=== PATIENT | female | born 1935 | race Caucasian/White ===

== ENCOUNTER 2016-10-19 21:16 | Emergency (ER) | payer MEDICARE, BC ==
[~2016-10-19] VITALS: Ht 162.6 cm; Wt 58.0 kg
[~2016-10-19 21:16] MED LIST: ALEN70; CALCIUM PLUS D; GLUCOSAMINE; TAB-TAB; vitamin c
[2016-10-19 21:24] VITALS: BP 135/100; PULSE 123; RESP 18; TEMP 99.4; O2SAT 97
[2016-10-19 22:10] VITALS: BP 137/88; PULSE 98; RESP 16; O2SAT 99
[2016-10-19] MEDS ORDERED: GLUC1CAP14 PO (22:19)
[2016-10-19] MEDS ORDERED: GABA100C4 PO (22:19)
[2016-10-19] MEDS ORDERED: CYAN1000P IM (22:19)
[2016-10-19] MEDS ORDERED: DENO60P SQ (22:19)
--- NOTE | 2016-10-19 22:29 | PD ---
HPI Chief Complaint: Musculoskeletal Complaint Time Seen by Provider: 22:19 Travel History International Travel<30 days: No Contact w/Intl Traveler<30days: No Traveled to known affect area: No History of Present Illness HPI The patient is an 80-year-old female that fell yesterday, fell backwards, and now has bilateral groin pain and states she cannot walk even with her walker. She waited one day because she get better. 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 She complains of some slight left hip pain but her main complaint is bilateral groin pain. PFSH Past Medical History Arthritis: Yes Blood Disorders: No Cancer: Yes (BREAST) Cardiovascular Problems: No Diabetes: No Endocrine: No Gastrointestinal Disorders: No Genitourinary: No Neurologic: No Psychiatric: No Respiratory: No Tetanus Vaccination: > 5 Years ?: Not Past Surgical History Appendectomy: Yes (1949) Tonsillectomy: Yes (1940) Other Surgery: Yes (BILATERAL MASTECTOMY) Social History Alcohol Use: No Tobacco Use: No Substance Use: No Allergies-Medications (Allergen,Severity, Reaction): Coded Allergies: No Known Allergies (Verified , 07/20/07) Reported Meds & Prescriptions Reported Meds & Active Scripts Active Reported Prolia Inj (Denosumab) 60 Mg/Ml Inj 60 Mg SQ Q180D Glucosamine-Chondroitin 500-400 Mg Cap 1 Cap PO DAILY Cyanocobalamin Inj (Cyanocobalamin) 1,000 Mcg/Ml Inj 1,000 Mcg IM Q30D Gabapentin 100 Mg Cap 100 Mg PO TID [Glucosamine] [Calcium Plus D] [vitamin c] Review of Systems Except as stated in HPI: all other systems reviewed are Neg Physical Exam Narrative GENERAL: Well-nourished, well-developed patient in slight apparent distress with her bilateral groin pain. Her vital signs show heart rate of 123 but otherwise normal, repeat shows heart rate of 98. SKIN: Warm and dry. No contusions or skin rash are noted. HEAD: Normocephalic. EYES: No scleral icterus. No injection or drainage. NECK: Supple, trachea midline. No JVD or lymphadenopathy. CARDIOVASCULAR: Regular rate and rhythm without murmurs, gallops, or rubs. RESPIRATORY: Breath sounds equal bilaterally. No accessory muscle use. GASTROINTESTINAL: Abdomen soft, non-tender, nondistended. MUSCULOSKELETAL: No cyanosis, or edema. There is tenderness with her bilateral anterior groin over the anterior pubic rami. There is minimal tenderness over the left hip. There is no foreshortening of either leg and good capillary refill and pinprick is present distally on the feet. BACK: Nontender without obvious deformity. No CVA tenderness. Data Data Last Documented VS Vital Signs Date Time Temp Pulse Resp B/P Pulse Ox O2 Delivery O2 Flow Rate FiO2 10/19/16 22:13 92 10/19/16 22:10 16 137/88 99 10/19/16 21:24 99.4 Orders Hip, Uni(Ap&Lat) W Ap Pelvis (10/19/16 22:37) MDM Medical Decision Making Medical Screen Exam Complete: Yes Emergency Medical Condition: Yes Medical Record Reviewed: Yes Interpretation(s) The hip with AP pelvis shows chronic change but no acute fracture/dislocation or abnormality is noted. There does appear to be a healed fracture deformity on the inferior and superior pubic rami on the left, the patient remembers fracturing her pelvis there before. Differential Diagnosis Pubic rami fracture, hip fracture, contusion hip/pelvis Narrative Course The patient appears to have a contusion of the hip/pelvis area. She states she has done well with oxycodone in the past and will be prescribed Percocet. Diagnosis Primary Impression: Contusion of left hip Med/Other Pt SpecificInfo: Prescription(s) given Scripts Oxycodone-Acetaminophen (Percocet)5-325 mg Tab1 Tab PO Q4H PRN (PAIN) #30 TAB Ref 0 Prov:Jair Vera MD 10/19/16 Disposition: 01 DISCHARGE HOME Condition: Stable Jair Vera MD Oct 19, 2016 22:29
--- NOTE | 2016-10-19 23:02 | RADHPO ---
EXAM DATE/TIME: 10/19/2016 22:45 [facility] COMPARISON: No previous studies available for comparison. INDICATIONS : Left hip pain post fall last night. MEDICAL HISTORY : None. SURGICAL HISTORY : Left hip replacement. ENCOUNTER: Initial ACUITY: 1 day PAIN SCORE: 3/10 LOCATION: Left hip. FINDINGS: Examination of the left hip was performed with AP Pelvis. There is a total hip prosthesis seen on th e left side. There appears be healed fracture deformity is at the inferior and superior pubic rami on the left. An acute fracture deformity is not seen. There is degenerative change in the lumbar spine. CONCLUSION: Chronic change as described above. An acute abnormality is not seen. Rick Malone MD on October 19, 2016 at 22:59 Board Certified Radiologist. This report was verified electronically.
[2016-10-19] MEDS ORDERED: PERC5TAB12 PO (23:55)
[2016-10-20] MEDS ORDERED: oxyCODONE/ACETAMINOPHEN 7.5 MG/325 MG TAB PO ONE
[2016-10-20 00:38] VITALS: BP 154/72
== END 2016-10-20 00:53 | disposition home or self-care (01) ==
LOC: PHED 21:16
DX: S70.02XA Contusion of left hip, initial encounter (principal); M19.90 Unspecified osteoarthritis, unspecified site; Z96.642 Presence of left artificial hip joint; W19.XXXA Unspecified fall, initial encounter; Y93.9 Activity, unspecified; Y92.9 Unspecified place or not applicable; Y99.9 Unspecified external cause status
CPT/HCPCS: 73502; 99283

== ENCOUNTER 2016-10-29 18:28 | Observation (INO) | payer MEDICARE, BC ==
[~2016-10-29] VITALS: Ht 162.6 cm; Wt 58.0 kg
[~2016-10-29 18:28] MED LIST changes: -ALEN70; +CYAN1000P IM; +DENO60P SQ; +GABA100C4 PO; +GLUC1CAP14 PO; +PERC5TAB12 PO; -TAB-TAB
[2016-10-29 18:32] VITALS: BP 157/87; PULSE 123; RESP 20; TEMP 98.2; O2SAT 97
--- NOTE | 2016-10-29 20:04 | PD ---
HPI Chief Complaint: Pain: Acute or Chronic Time Seen by Provider: 19:19 Travel History International Travel<30 days: No Contact w/Intl Traveler<30days: No Traveled to known affect area: No History of Present Illness HPI The patient is a 89-year-old female that fell 10 days ago and hurt her neck and upper back. She was seen in this emergency department and prescribed Percocet. The patient had imaging of the pelvis and hip but not the neck or head. She complains of right head pain and neck pain and has difficulty moving her neck. She had [facility] bring her in today because of the pain. She denies any numbness or weakness radiating down her arms or legs. PFSH Past Medical History Arthritis: Yes Blood Disorders: No Cancer: Yes (BREAST) Cardiovascular Problems: No Diabetes: No Diminished Hearing: No Endocrine: No Gastrointestinal Disorders: No Genitourinary: No Neurologic: No Psychiatric: No Respiratory: No Immunizations Current: Yes Tetanus Vaccination: > 5 Years Influenza Vaccination: Yes ?: Not Past Surgical History Appendectomy: Yes (1949) Tonsillectomy: Yes (1940) Other Surgery: Yes (BILATERAL MASTECTOMY) Social History Alcohol Use: No Tobacco Use: No Substance Use: No Allergies-Medications (Allergen,Severity, Reaction): Coded Allergies: No Known Allergies (Verified , 10/29/16) Reported Meds & Prescriptions Reported Meds & Active Scripts Active Percocet (Oxycodone-Acetaminophen) 5-325 mg Tab 1 Tab PO Q4H PRN Reported Prolia Inj (Denosumab) 60 Mg/Ml Inj 60 Mg SQ Q180D Glucosamine-Chondroitin 500-400 Mg Cap 1 Cap PO DAILY Cyanocobalamin Inj (Cyanocobalamin) 1,000 Mcg/Ml Inj 1,000 Mcg IM Q14 DAYS Gabapentin 100 Mg Cap 100 Mg PO TID Review of Systems Except as stated in HPI: all other systems reviewed are Neg Physical Exam Narrative GENERAL: The patient is alert, oriented 3 in moderate apparent distress with her neck pain. Blood pressure 157/87 and heart rate of 123 but otherwise normal. SKIN: Warm and dry. HEAD: Atraumatic. Normocephalic. EYES: Pupils equal and round. No scleral icterus. No injection or drainage. ENT: No nasal bleeding or discharge. Mucous membranes pink and moist. NECK: Trachea midline. No JVD. There is tenderness on the musculature of the neck on the right. There is also slight posterior spinous process tenderness without deformity. CARDIOVASCULAR: Regular rate and rhythm. No murmur appreciated. RESPIRATORY: No accessory muscle use. Clear to auscultation. Breath sounds equal bilaterally. GASTROINTESTINAL: Abdomen soft, non-tender, nondistended. Hepatic and splenic margins not palpable. MUSCULOSKELETAL: No obvious deformities. No clubbing. No cyanosis. No edema. NEUROLOGICAL: Awake and alert. No obvious cranial nerve deficits. Motor grossly within normal limits. Normal speech. PSYCHIATRIC: Appropriate mood and affect; insight and judgment normal. Data Data Last Documented VS Vital Signs Date Time Temp Pulse Resp B/P Pulse Ox O2 Delivery O2 Flow Rate FiO2 10/29/16 22:17 122 10/29/16 21:02 17 142/88 95 Room Air 10/29/16 18:[address] Brain W/O Iv Contrast(Rout) (10/29/16 20:01) Ct Cerv Spine W/O Contrast (10/29/16 20:01) Oxycodone-Acetamin 7.5-325 Mg (Percocet (10/29/16 23:00) B-Type Natriuretic Peptide (10/29/16 23:21) Ckmb (Isoenzyme) Profile (10/29/16 23:21) Troponin I (10/29/16 23:21) Place In Observation (10/29/16 ) Vital Signs (Adult) Q4H (10/29/16 23:36) Neuro Checks Q4H (10/29/16 23:36) Activity Oob With Assistance (10/29/16 23:36) Diet Heart Healthy (10/30/16 Breakfast) Sodium Chloride 0.9% Flush (Ns Flush) (10/29/16 23:45) Sodium Chloride 0.9% Flush (Ns Flush) (10/30/16 09:00) Scd Bilateral/Knee High SMILEY.BID (10/29/16 23:36) Naloxone Inj (Narcan Inj) (10/29/16 23:45) Mri C Spine W/O Contrast (10/29/16 ) Morphine Inj (Morphine Inj) (10/29/16 23:45) MDM Medical Decision Making Medical Screen Exam Complete: Yes Emergency Medical Condition: Yes Medical Record Reviewed: Yes Interpretation(s) The CT of the brain shows no acute disease. The CT of the cervical spine shows prominent degenerative change throughout the cervical spine but no acute bony abnormality. 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 At C 56 she has at least a mild impression on the anterior aspect of the thecal sac and narrowing of the right neural foramina. Fortunately, she does not have any numbness, weakness or radiation of pain down her upper extremities. She says she cannot move any without pain. She called the ambulance because she could not move. It is possible that she may benefit from neurosurgery her pain management with this. An MRI may be necessary to define some of these degenerative problems in her neck. Diagnosis Primary Impression: Cervical neck pain with evidence of disc disease Additional Impression: Intractable pain Admitting Information Admitting Physician Requests: Jair Joshi MD Oct 29, 2016 20:04
[2016-10-29 21:02] VITALS: BP 142/88; PULSE 122; RESP 17; O2SAT 95
--- NOTE | 2016-10-29 22:05 | RADHPO ---
EXAM DATE/TIME: 10/29/2016 21:20 [facility] COMPARISON: No previous studies available for comparison. INDICATIONS : Fell 10 days ago, now with right-sided head and neck pain. RADIATION DOSE: 71.58 CTDIvol (mGy) MEDICAL HISTORY : Carcinoma, breast. SURGICAL HISTORY : Mastectomy, bilateral. Appendectomy.Tonsillectomy. ENCOUNTER: Initial ACUITY: 1 day PAIN SCALE: 8/10 LOCATION: Right neck TECHNIQUE: Multiple contiguous axial images were obtained of the head. Using automated exposure control and adj ustment of the mA and/or kV according to patient size, radiation dose was kept as low as reasonably a chievable to obtain optimal diagnostic quality images. FINDINGS: CEREBRUM: The ventricles are normal for age. No evidence of midline shift, mass lesion, hemorrhage or acute in farction. No extra-axial fluid collections are seen. POSTERIOR FOSSA: The cerebellum and brainstem are intact. The 4th ventricle is midline. The cerebellopontine angle i s unremarkable. EXTRACRANIAL: The visualized portion of the orbits is intact. SKULL: The calvaria is intact. No evidence of skull fracture. CONCLUSION: No acute disease. Rick Malone MD on October 29, 2016 at 22:03 Board Certified Radiologist. This report was verified electronically.
--- NOTE | 2016-10-29 22:32 | RADHPO ---
EXAM DATE/TIME: 10/29/2016 21:20 [facility] COMPARISON: No previous studies available for comparison. INDICATIONS: Fell 10 days ago, now with right-sided head and neck pain. RADIATION DOSE: 26.28 CTDIvol (mGy) MEDICAL HISTORY: Carcinoma, breast. SURGICAL HISTORY: Mastectomy, bilateral. Tonsillectomy. Appendectomy. ENCOUNTER: Initial ACUITY: 1 day PAIN SCALE: 8/10 LOCATION: Right neck TECHNIQUE: Volumetric scanning of the cervical spine was performed. Multiplanar reconstructions in the sagittal, coronal and oblique axial planes were performed. Using automated exposure control and adjustment o f the mA and/or kV according to patient size, radiation dose was kept as low as reasonably achievable to obtain optimal diagnostic quality images. FINDINGS: The craniovertebral junction is intact. The C1 ring is intact. The C1-C2 articulation is aligned. There is hypertrophic change at the C1-C2 articulation. The dens is intact. There is some loss of h eight at the C6 vertebral body. An acute fracture is not seen. This appears chronic. There does ap pear to be end plate sclerosis at the C5, C6 and C7 levels. There is anterior subluxation in the ord er of 5 mm of C4 on C5 and in the order of 5 mm of C7 on T1. C2-C3: The disc margin appears grossly intact. Significant spinal stenosis is not appreciated. There is bi lateral facet hypertrophy being worse on the left. The neural foramina are grossly patent. C3-C4: Disc space is grossly intact. There is no spinal stenosis. The neural foramina are normal. There i s bilateral facet hypertrophy being worse on the left. C4-C5: Again noted is the anterior subluxation of C4 on C5. There is fusion at the facet joints. The neura l foramina are grossly patent. C5-C6: Disc space is narrowed. There is posterior osteophytic ridging being asymmetric and worse on the rig ht causing at least a mild impression on the anterior aspect of the thecal sac. There is uncovertebr al hypertrophy being worse on the right. There is narrowing of the right neural foramina. The left neural foramina appears grossly intact. C6-C7: Disc space is narrowed. There is mild posterior osteophytic ridging. There is uncovertebral hypertr ophy. The neural foramina are grossly intact. There is facet hypertrophy. C7-T1: again noted is the anterior subluxation of C7 on T1. This is thought to be secondary to severe facet hypertrophy. The neural foramina are grossly normal. CONCLUSION: Very prominent degenerative change throughout as described above. An acute bony abnormality is not c learly identified. Rick Malone MD on October 29, 2016 at 22:03 Board Certified Radiologist. This report was verified electronically.
[2016-10-29] MEDS ORDERED: oxyCODONE/ACETAMINOPHEN 7.5 MG/325 MG TAB PO ONE (23:00)
[2016-10-29] MEDS ORDERED: NALOXONE HCL 0.4 MG/ML AMP IV PRN (23:45)
[2016-10-29] MEDS ORDERED: SODIUM CHLORIDE 0.9% FLUSH 5 ML FLUSH FLUSH PRN (23:45)
[2016-10-29] MEDS ORDERED: MORPHINE SULFATE 4 MG/ML INJ IV PUSH PRN (23:45)
[2016-10-29 23:46] VITALS: BP 153/94; PULSE 132; RESP 16; TEMP 99.4; O2SAT 98
[2016-10-30 00:19] LABS: BICARBONATE 23.4 MEQ/L (21.0-32.0); BLOOD UREA NITROGEN 14 MG/DL (7-18)
[2016-10-30 00:22] LABS: ALT (GPT) 19 U/L (10-53); AST (GOT) 18 U/L (15-37); GLOMERULAR FILTRATION RATE 94 ML/MIN (>89)
[2016-10-30 00:23] LABS: TOTAL BILIRUBIN ADULT 1.1 MG/DL (0.2-1.0)
[2016-10-30 00:24] LABS: CREATINE KINASE 53 U/L (26-192)
[2016-10-30 00:25] LABS: ALKALINE PHOSPHATASE 124 U/L (45-117)
[2016-10-30 00:37] LABS: ANION GAP 14 MEQ/L (5-15); CHLORIDE 102 MEQ/L (98-107); SODIUM (NA) 139 MEQ/L (136-145)
[2016-10-30 00:41] LABS: MAGNESIUM 2.2 MG/DL (1.5-2.5)
[2016-10-30 00:43] LABS: AUTOMATED NEUTROPHIL # 7.7 TH/MM3 (1.8-7.7); BASOPHIL # 0.1 TH/MM3 (0-0.2); BASOPHIL % 0.6 % (0.0-2.0); EOSINOPHIL % 0.2 % (0.0-4.0); LYMPH % 4.9 % (9.0-44.0); LYMPHOCYTE # 0.4 TH/MM3 (1.0-4.8); MEAN CELL VOLUME 89.9 FL (80.0-100.0); MEAN CORPUSCULAR HEMOGLOBIN 30.1 PG (27.0-34.0); MEAN CORPUSCULAR HGB CONC 33.4 % (32.0-36.0); MONO % 8.9 % (0.0-8.0); NEUT % 85.4 % (16.0-70.0); PLATELET COUNT 314 TH/MM3 (150-450); RED BLOOD COUNT 4.78 MIL/MM3 (4.00-5.30); RED CELL DISTRIBUTION WIDTH 12.6 % (11.6-17.2)
[2016-10-30 00:58] LABS: HEMO FLAGS DIFF FINAL
[2016-10-30 02:41] VITALS: BP 154/88; PULSE 123; RESP 16; O2SAT 99
[2016-10-30] MEDS ORDERED: ENOXAPARIN SODIUM 60 MG/0.6 ML SYRINGE SQ ONE (02:45)
[2016-10-30] MEDS: oxyCODONE/ACETAMINOPHEN 5 MG/325 MG TAB PO PRN ×2 (04:19→09:30)
[2016-10-30 06:47] VITALS: BP 133/66; PULSE 87; RESP 16; O2SAT 98
[2016-10-30 07:21] VITALS: BP 132/66; PULSE 74; RESP 18; TEMP 98; O2SAT 98
[2016-10-30 08:25] VITALS: BP 130/68; PULSE 73; RESP 17; TEMP 98; O2SAT 97
[2016-10-30] MEDS ORDERED: ACETAMINOPHEN 500 MG CPLT PO PRN (08:30)
[2016-10-30] MEDS ORDERED: DEXAMETHASONE SOD PHOS 4 MG/ML VIAL IV PUSH ONE (08:30)
[2016-10-30] MEDS ORDERED: ONDANSETRON HCL 4 MG/2 ML VIAL IV PUSH PRN (08:30)
[2016-10-30] MEDS ORDERED: SODIUM CHLORIDE 0.9% FLUSH 5 ML FLUSH FLUSH SCH (09:00)
[2016-10-30] MEDS: GABAPENTIN 100 MG CAP PO SCH ×2 (09:30→13:52)
--- NOTE | 2016-10-30 11:55 | RADHPO ---
EXAM DATE/TIME: 10/30/2016 11:15 [facility] COMPARISON: No previous studies available for comparison. INDICATIONS : Dyspnea. DOSE: 8.1 mCi Tc99m MAA IV 1.1 mCi Tc99m DTPA aerosol MEDICAL HISTORY : Carcinoma, breast. SURGICAL HISTORY : Appendectomy. Tonsillectomy. Mastectomy, bilateral. ENCOUNTER: Initial ACUITY: 1 day PAIN SCALE: 0/10 LOCATION: chest TECHNIQUE: Following five minutes of tidal breathing of DTPA aerosol, planar images of the lungs were performed in eight projections. The patient was then injected with MAA, and eight-view perfusion scan was perf ormed. FINDINGS: The ventilation scan demonstrates hyperinflated lungs with diminished cavity in the upper lobes. No f ocal ventilatory defects are seen. The perfusion lung scan demonstrates a homogenous pattern of uptake in both lungs. No segmental or s ubsegmental defects are seen. CONCLUSION: Lung hyperinflation characteristic of COPD. Low probability of pulmonary embolism. Rajesh Marcus MD on October 30, 2016 at 11:53 Board Certified Radiologist. This report was verified electronically.
[2016-10-30 12:00] VITALS: BP 122/75; PULSE 77; RESP 18; TEMP 97.9; O2SAT 98
--- NOTE | 2016-10-30 12:58 | RADHPO ---
EXAM DATE/TIME: 10/30/2016 12:08 [facility] COMPARISON: No previous studies available for comparison. INDICATIONS : Pain. Neck pain. MEDICAL HISTORY : Carcinoma, breast. SURGICAL HISTORY : Appendectomy. Mastectomy, bilateral. Tonsillectomy. Breast implants. Cataract surgery. Bi-lateral hip surgery. ENCOUNTER: Subsequent ACUITY: 3 day PAIN SCORE: 8/10 LOCATION: neck TECHNIQUE: Multiplanar, multisequence MRI examination of the cervical spine was performed. FINDINGS: C2-C3: The thecal sac has a normal configuration. There is no evidence of disc herniation or spinal canal s tenosis. The neural foramina are patent bilaterally. C3-C4: The thecal sac has a normal configuration. There is no evidence of disc herniation or spinal canal s tenosis. The neural foramina are patent bilaterally. C4-C5: Minimal anterolisthesis, likely degenerative without significant canal or foraminal stenosis. C5-C6: Advanced degenerative disc disease with osteophytic ridging. Thecal sac is effaced. No cord impingeme nt. Right-sided neural foraminal stenosis. C6-C7: Moderate to severe degenerative changes with osteophytic ridging. No stenosis. C7-T1: The thecal sac has a normal configuration. There is no evidence of disc herniation or spinal canal s tenosis. The neural foramina are patent bilaterally. CONCLUSION: 1. Increased lordotic curvature of the cervical spine. 2. Moderate to advanced degenerative disc disease at C5-6-7 effacing the thecal sac without cord comp ression. Right-sided neural foraminal stenosis at C5-6. 3. Grade 1 anterolisthesis of C4 on C5, probably degenerative in nature. No acute fracture. González Fournier MD on October 30, 2016 at 12:54 Board Certified Radiologist. This report was verified electronically.
--- NOTE | 2016-10-30 13:22 | HHI.FF ---
Face to Face Verification Diagnosis: (1) Acute cervical sprain (2) Fall at home Physical Therapy Order: Evaluate and Treat, Improve ambulation, Strength and gait training Home Health Nursing Order: Medical education Signs/symptoms of disease process Nursing assessment with vital signs I have seen patient Luly Castellanos on 10/30/16. My clinical findings support the need for the requested home health care services because: Deconditioned w/ increased weakness High risk of falls I certify that my clinical findings support that this patient is homebound because: Unsteady gait/balance Stephen Vera Oct 30, 2016 13:22
--- NOTE | 2016-10-30 13:37 | HHI.HP ---
[facility] Service [facility] Primary Care Physician Chris Pedro MD Admission Diagnosis intractable neck pain Diagnoses: (1) Neck pain, acute Diagnosis: Principal (2) Fall at home Diagnosis: Secondary Chief Complaint: Neck pain Travel History International Travel<30 Days: No Contact w/Intl Traveler <30 Da: No Traveled to Known Affected Are: No History of Present Illness 80-year-old female with rather benign history and no significant chronic medical illnesses who presented to hospital because of neck pain. Patient states that roughly 10 days ago she fell at home injuring her pelvic area. [facility] came and evaluated her and noticed that she can still walk at home with a walker. Patient did not go to the hospital that time. However, the next day she went to the hospital to get checked out because she is having significant amount of pain and difficulty ambulating. Patient had images done of the hip and pelvis, head CT without any acute abnormalities. Patient was doing well when she had discharge from the ER at that time. She has followed up with her primary medical doctor and has given her a prescription to obtain outpatient physical therapy. However, the patient was in her normal state of health until the night before last when she went to bed, she is doing well she woke up and laid back down. When she woke up yesterday morning she had a pain that started in her head and neck and progressively got worse throughout the day. Patient came to emergency department for evaluation underwent cervical spine CT without any acute fracture or bony abnormality. Patient has undergone cervical spine MRI without any acute bony abnormality, no significant spinal stenosis, right sided neural foraminal stenosis, grade 1 anterolisthesis of C4 on C5. Patient appears to be doing better today. Upon entering room she was talking on the phone and moving her neck. I discussed her condition with her son and patient. Discussed with them that she has acute muscle skeletal strain and would require outpatient physical therapy and pain control. I offered them home health care with physical therapy and they openly agreed. Will plan discharge accordingly. Review of Systems Constitutional: DENIES: Diaphoretic episodes, Fatigue, Fever, Weight gain, Weight loss, Chills, Dizziness, Change in appetite, Night Sweats Eyes: DENIES: Blurred vision, Diplopia, Eye inflammation, Eye pain, Vision loss , Double Vision Ears, nose, mouth, throat: DENIES: Vertigo, Nasal discharge, Throat pain, Ear Pain, Running Nose, Sinus Pain Respiratory: DENIES: Apneas, Cough, Snoring, Wheezing, Hemoptysis, Sputum production, Shortness of breath Cardiovascular: DENIES: Chest pain, Palpitations, Syncope, Dyspnea on Exertion , Lower Extremity Edema, Orthopnea Gastrointestinal: DENIES: Abdominal pain, Black stools, Bloody stools, Constipation, Diarrhea, Nausea, Vomiting, Difficulty Swallowing, Anorexia Musculoskeletal: COMPLAINS OF: Neck pain Neurologic: DENIES: Abnormal gait, Headache, Localized weakness, Paresthesias, Seizures, Speech Problems, Tremor, Poor Balance Past Family Social History Past Medical History Osteoporosis History of breast cancer Past Surgical History Tonsillectomy Cataract surgery Right femur surgery Right ankle surgery Bilateral mastectomy Reported Medications Reported Meds & Active Scripts Active Percocet (Oxycodone-Acetaminophen) 5-325 mg Tab 1 Tab PO Q4H PRN Reported Prolia Inj (Denosumab) 60 Mg/Ml Inj 60 Mg SQ Q180D Glucosamine-Chondroitin 500-400 Mg Cap 1 Cap PO DAILY Cyanocobalamin Inj (Cyanocobalamin) 1,000 Mcg/Ml Inj 1,000 Mcg IM Q14 DAYS Gabapentin 100 Mg Cap 100 Mg PO TID Allergies: Coded Allergies: No Known Allergies (Verified , 10/29/16) Family History Reviewed is significant for father having bladder cancer, she does not know if he is from abdominal aneurysm or heart attack Social History Patient denies any tobacco, alcohol or illicit drugs Physical Exam Vital Signs Vital Signs Date Time Temp Pulse Resp B/P Pulse Ox O2 Delivery O2 Flow Rate FiO2 10/30/16 08:25 98.0 73 17 130/68 97 10/30/16 07:23 74 18 10/30/16 07:21 98.0 74 18 132/66 98 Room Air 10/30/16 06:47 87 16 133/66 98 Room Air 10/30/16 02:41 123 16 154/88 99 Room Air 10/29/16 23:46 99.4 132 16 153/94 98 Room Air 10/29/16 22:17 122 10/29/16 21:02 122 17 142/88 95 Room Air 10/29/16 18:32 98.2 123 20 157/87 97 Physical Exam GENERAL: Well-developed, well-nourished, in no acute distress. alert and orientated HEENT: Head is normocephalic without any lesions or masses noted. Facial features are symmetric. Eyes: Pupils equal round reactive to light. Extraocular muscles are intact. Conjunctivae were clear. Oropharyngeal: Pharynx without any erythema edema. Tongue is midline without deviation. Buccal mucosa is moist without any masses or lesions NECK: Patient does have hypertonicity noted in the paracervical musculature. She does have rather large myospasms and bilateral trapezius with patient does indicate are painful on palpation and does feel better when manipulated.. Trachea midline no deviation. No JVD, no bruits are appreciated CARDIAC: Regular rhythm, regular rate. S1/S2 are heard. No murmurs gallops or rubs. LUNGS: Clear to auscultation bilaterally. No wheeze, rhonchi or rales. No use of accessory muscles on inspiration or expiration. ABDOMEN: Soft, nontender. Nondistended. Bowel sounds heard in all 4 quadrants. No organomegaly or masses. Negative rebound, negative guarding EXTREMITIES: No edema, pulses are equal bilaterally. No cyanosis or clubbing NEUROLOGY: Mood and affect appear appropriate. Cranial nerves II through XII grossly intact. Muscle strength 5/5 in upper and lower extremities bilaterally. Deep tendon reflexes are 2+ in upper and lower extremities bilaterally. Laboratory Laboratory Tests Test 10/29/16 10/30/16 23:40 00:15 D-Dimer Quantitative (PE/DVT) 2.15 Sodium Level 139 Potassium Level 4.0 Chloride Level 102 Carbon Dioxide Level 23.4 Anion Gap 14 Blood Urea Nitrogen 14 Creatinine 0.61 Estimat Glomerular Filtration 94 Rate Random Glucose 97 Calcium Level 8.0 Magnesium Level 2.2 Total Bilirubin 1.1 Aspartate Amino Transf 18 (AST/SGOT) Alanine Aminotransferase 19 (ALT/SGPT) Alkaline Phosphatase 124 Total Creatine Kinase 53 Troponin I LESS THAN 0.02 B-Type Natriuretic Peptide 246 Total Protein 7.0 Albumin 2.7 White Blood Count 9.0 Red Blood Count 4.78 Hemoglobin 14.4 Hematocrit 43.0 Mean Corpuscular Volume 89.9 Mean Corpuscular Hemoglobin 30.1 Mean Corpuscular Hemoglobin 33.4 Concent Red Cell Distribution Width 12.6 Platelet Count 314 Mean Platelet Volume 8.6 Neutrophils (%) (Auto) 85.4 Lymphocytes (%) (Auto) 4.9 Monocytes (%) (Auto) 8.9 Eosinophils (%) (Auto) 0.2 Basophils (%) (Auto) 0.6 Neutrophils # (Auto) 7.7 Lymphocytes # (Auto) 0.4 Monocytes # (Auto) 0.8 Eosinophils # (Auto) 0.0 Basophils # (Auto) 0.1 CBC Comment DIFF FINAL Differential Comment Result Diagram: 10/30/16 0015 10/29/16 2340 Imaging Last Impressions Lung Scan-[facility] Nuclear Medicine 10/30/16 0000 Signed Impressions: Service Date/Time: Sunday, October 30, 2016 11:15 - CONCLUSION: Lung hyperinflation characteristic of COPD. Low probability of pulmonary embolism. Rajesh Marcus MD Cervical Spine MRI 10/30/16 0000 Signed Impressions: Service Date/Time: Sunday, October 30, 2016 12:08 - CONCLUSION: 1. Increased lordotic curvature of the cervical spine. 2. Moderate to advanced degenerative disc disease at C5-6-7 effacing the thecal sac without cord compression. Right-sided neural foraminal stenosis at C5-6. 3. Grade 1 anterolisthesis of C4 on C5, probably degenerative in nature. No acute fracture. González Forunier MD Head CT 10/29/162000 Signed Impressions: Service Date/Time: Saturday, October 29, 2016 21:20 - CONCLUSION: No acute disease. Rick Malone MD Cervical Spine CT 10/29/162000 Signed Impressions: Service Date/Time: Saturday, October 29, 2016 21:20 - CONCLUSION: Very prominent degenerative change throughout as described above. An acute bony abnormality is not clearly identified. Rick Malone MD Assessment and Plan Assessment and Plan Acute neck pain, cervical strain/sprain CT scan of the cervical spine shows very prominent degenerative change throughout. No bony abnormality was appreciated. MRI of the cervical spine: Indicates increased lordotic curvature, moderate to advanced degenerative disease at C5-C6C7 effacing the thecal sac without cord compression. Right sided neural foraminal stenosis at C5-C6. Grade 1 anterolisthesis of C4 on C5, probably degenerative in nature no fracture seen Status post Decadron with improvement Continue pain control Discussed management of acute cervical strain and sprain with patient and family at bedside. Patient would benefit greatly from outpatient physical therapy, massage therapy, rehabilitation. They are in agreement. They are to have a prescription from her primary medical doctor for physical therapy. I offered home health care with physical therapy and they are willing and agreed to do so. Elevated d-dimer D-dimer is performed secondary to tachycardia which was likely due to pain VQ scan was negative for any embolic event DVT prevention Sequential compression devices Written by Stephen Vera PA-C, acting as scribe for Dr. Rodriguez on 10/30/16 at 1540. The documentation accurately reflects the work and decisions performed face-to- face by Dr. Rodriguez on 10/30/16 at 1540. Discharge disposition Discharge home in stable condition with home health care once arranged by case management Activity: Ad tessa. Diet: Regular diet Medications per medication reconciliation Follow-up primary medical doctor in one week Problem Qualifiers (1) Fall at home: Qualified Code: W19.XXXA - Fall at home, initial encounter Stephen Vera Oct 30, 2016 13:37
[2016-10-30] MEDS ORDERED: CYCL5TAB PO (13:38)
[2016-10-30] MEDS ORDERED: WALKER WHEELS/F1 MIS (15:24)
--- NOTE | 2016-10-30 15:29 | EKG ---
Date Performed: 10/30/2016 Time Performed: 00:29:16 PTAGE: 80 years EKG: Sinus tachycardia with PVC(s) Short WA interval Right bundle branch block Possible anterior infarct - age undetermined Inferior ST-T changes are nonspecific Compared to previous tracing, the r hythm is now maybe junctional tachycardia with PVCs Abnormal ECG PREVIOUS TRACING : 12/11/2007 20.21 DOCTOR: Ezio Bacon Interpretating Date/Time 10/30/2016 15:29:09
== END 2016-10-30 17:54 | disposition home or self-care (01) ==
LOC: PHEFT 18:28 → INTOOBSV 10-30 01:00 → PHEDA 10-30 01:00 → PHEDH 10-30 05:00 → PH3A 10-30 08:25
PROVIDERS: ADMIT Family Medicine; ATTEND Family Medicine
DX: S16.1XXA Strain of muscle, fascia and tendon at neck level, initial encounter (principal); R51 Headache; M19.90 Unspecified osteoarthritis, unspecified site; Z79.899 Other long term (current) drug therapy; R00.0 Tachycardia, unspecified; W18.30XA Fall on same level, unspecified, initial encounter; Z91.81 History of falling; Y93.9 Activity, unspecified; Y92.009 Unspecified place in unspecified non-institutional (private) residence as the place of occurrence of the external cause; M48.02 Spinal stenosis, cervical region; M81.0 Age-related osteoporosis without current pathological fracture; Z85.3 Personal history of malignant neoplasm of breast; M43.12 Spondylolisthesis, cervical region; R94.31 Abnormal electrocardiogram [ECG] [EKG]
CPT/HCPCS: 70450; 72125; 72141; 78582; 80053; 82550; 83735; 83880; 84484; 85025; 85379; 93005; 97162; 99285; A9540; A9567; G0378; G8987; G8988; J1100; J1650